=== PATIENT | female | born 1990 | race American Indian/Alaskan Native ===

== ENCOUNTER 2016-05-15 03:22 | Emergency (ER) | payer SELFPAY ==
[2016-05-15 03:42] VITALS: BP 135/78
[2016-05-15 04:12] LABS: Basophils % (Auto) 0.7 % (0.0-1.8); Eosinophils % (Auto) 3.4 % (0.0-4.3); Hemoglobin 11.6 gm/dl (10.1-14.3); Mean Corpuscular HGB Conc 32 % (30-34); Mean Corpuscular Hemoglobin 27 pg (28-32); Mean Corpuscular Volume 84 fl (79-97); Platelet Count 382 K/mm3 (140-440); Red Blood Count 4.27 M/mm3 (3.65-5.03); Red Cell Distribution Width 15.1 % (13.2-15.2)
[2016-05-15 04:35] LABS: Alanine Aminotransferase 19 units/L (7-56); Albumin 4.5 g/dL (3.9-5); Albumin/Globulin Ratio 1.7 %; Alkaline Phosphatase 56 units/L (35-129); Anion Gap 20 mmol/L; BUN/Creatinine Ratio 13.75; Bilirubin,Total 0.4 mg/dL (0.1-1.2); Blood Urea Nitrogen 11 mg/dL (7-17); Calcium 8.9 mg/dL (8.4-10.2); Carbon Dioxide 22 mmol/L (22-30); Chloride 100.4 mmol/L (98-107); Glucose 117 mg/dL (65-100); Potassium 3.8 mmol/L (3.6-5.0); Sodium 139 mmol/L (137-145); Total Protein 7.2 g/dL (6.3-8.2)
[2016-05-15 06:05] LABS: Bacteria,Urine 1+ /HPF (Negative); Bilirubin,Urine NEG (Negative); Blood,Urine NEG (Negative); Ketones,Urine 20 mg/dL (Negative); Leukocyte Esterase,Urine MOD (Negative); Mucus,Urine 3+ /HPF; Nitrite,Urine NEG (Negative); Urobilinogen,Urine < 2.0 mg/dL (<2.0)
--- NOTE | 2016-05-16 18:47 | ED Elopement Review ---
ED Pt Elopement review - Results review Lab results: Laboratory Tests 05/15/16 05/15/16 05/15/16 04:03 04:03 Unknown WBC 7.0 RBC 4.27 Hgb 11.6 Hct 36.0 MCV 84 MCH 27 L MCHC 32 RDW 15.1 Plt Count 382 Lymph % (Auto) 40.6 H Ware % (Auto) 10.9 H Eos % (Auto) 3.4 Baso % (Auto) 0.7 Lymph # 2.8 Ware # 0.8 Eos # 0.2 Baso # 0.1 Seg Neutrophils % 44.4 Seg Neutrophils # 3.1 Sodium 139 Potassium 3.8 Chloride 100.4 Carbon Dioxide 22 Anion Gap 20 BUN 11 Creatinine 0.8 Estimated GFR > 60 BUN/Creatinine Ratio 13.75 Glucose 117 H Calcium 8.9 Total Bilirubin 0.4 AST 30 ALT 19 Alkaline Phosphatase 56 Total Protein 7.2 Albumin 4.5 Albumin/Globulin Ratio 1.7 Urine Color Yellow Urine Turbidity Cloudy Urine pH 5.0 Ur Specific [place] 1.036 H Urine Protein 30 mg/dl Urine Glucose (UA) Neg Urine Ketones 20 Urine Blood Neg Urine Nitrite Neg Ur Reducing Substances Not Reportable Urine Bilirubin Neg Urine Ictotest Not Reportable Urine Urobilinogen < 2.0 Ur Leukocyte Esterase Mod Urine WBC (Auto) 10.0 H Urine RBC (Auto) 3.0 U Epithel Cells (Auto) 44.0 H Urine Bacteria (Auto) 1+ Urine Mucus 3+ Urine HCG, Qual Positive A - Call Back decision Pt Call Back Decision: Call pt to return to ED [facility] ( with abd pain)
== END 2016-05-15 11:02 | disposition left against medical advice (07) ==
LOC: ED 03:22
DX: R10.30 Lower abdominal pain, unspecified (principal); Z53.21 Procedure and treatment not carried out due to patient leaving prior to being seen by health care provider
CPT/HCPCS: 36415; 80053; 81001; 81025; 85025

== ENCOUNTER 2016-07-04 10:05 | Emergency (ER) | payer SELFPAY ==
[2016-07-04 11:21] LABS: Basophils % (Auto) 0.7 % (0.0-1.8); Eosinophils % (Auto) 3.2 % (0.0-4.3); Hemoglobin 11.5 gm/dl (10.1-14.3); Mean Corpuscular HGB Conc 33 % (30-34); Mean Corpuscular Hemoglobin 28 pg (28-32); Mean Corpuscular Volume 84 fl (79-97); Platelet Count 341 K/mm3 (140-440); Red Blood Count 4.17 M/mm3 (3.65-5.03); Red Cell Distribution Width 14.6 % (13.2-15.2); White Blood Count 5.4 K/mm3 (4.5-11.0)
[2016-07-04 12:31] LABS: Bilirubin,Urine NEG (Negative); Blood,Urine MOD (Negative); Ketones,Urine NEG (Negative); Leukocyte Esterase,Urine NEG (Negative); Mucus,Urine FEW /HPF; Nitrite,Urine NEG (Negative); Protein,Urine <15 mg/dL mg/dL (Negative); Urobilinogen,Urine < 2.0 mg/dL (<2.0)
--- NOTE | 2016-07-04 13:49 | Ultrasound Report ---
OB sonogram: History: Vaginal bleeding, pain. Findings: Uterus elias 15.7 x 7.5 8.2 cm. Single intrauterine gestation is noted. Biparietal diameter of the fetus is 1.8 cm corresponding to 12 weeks and 5 days of gestation. Femur length of the fetus is 0.82 cm corresponding to 12 weeks and 3 days gestation. heart rate 160 per minute. There is moderate subchorionic bleed noted measuring 1.9 x 1.3 x 3.4 cm. Right ovary 3.4 x 3.6 x 3.4 cm. Cyst in the right ovary measures 2 cm and a complex cyst in the right ovary measures 2.9 cm. Left ovary measures 2.5 x 1.4 x 1.8 cm. No mass. Impression: Single viable date of gestation. Subchorionic bleed. Complex and simple cyst right ovary.
[2016-07-04 18:24] VITALS: BP 117/47
--- NOTE | 2016-07-04 18:25 | Emergency Department Report ---
ED HPI - General Chief complaint: Urogenital-Female Stated complaint: 3 MO PREG/ HEAVY BLEEDING Time Seen by Provider: 07/04/16 18:00 Source: patient Mode of arrival: Ambulatory Limitations: No Limitations - History of Present Illness Complaint: vaginal bleeding Onset/Timin -: Gradual, days(s) Location: pelvis Radiation: none Severity scale (0 -10): 1 Quality: cramping Consistency: intermittent Improves with: none Worsens with: none Associated symptoms: vaginal bleeding. denies: nausea/vomiting, vaginal discharge, abdominal pain, headache, vision changes, malaise, dysparuenia, rash , shortness of breath, syncope, weakness Vaginal bleeding: light :: Yes Number of weeks : 12 OB History - Current : no complications OB History - Previous Pregnancies: no complications Last menstrual period: 03/28/16 Pre-anup care: none - Related Data Home Medications Medication Instructions Recorded Confirmed Last Taken ALBUTEROL NEB's [Proventil 0.083% 2 puff INHALATION Q4-6H PRN 03/12/14 03/12/14 03/11/14 14:00 NEBS] 1 Pnv95/Ferrous Fumarate/FA 1 tab PO DAILY 03/12/14 03/12/14 03/11/14 09:00 [ Vitamins] 1 Previous Rx's Medication Instructions Recorded Last Taken Type Prednisone 40 mg PO DAILY #5 day 01/25/14 Unknown Rx Acetaminophen with Codeine 60 ml PO TID #90 ml 03/21/14 Unknown Rx [Acetaminophen-Codeine ORAL LIQ] Azithromycin [Zithromax Z-REN] 250 mg PO DAILY #6 tablet 03/21/14 Unknown Rx Fluticasone [Flonase] 1 spray NS QDAY #1 bottle 03/21/14 Unknown Rx Loratadine [Claritin RAPDIS] 10 mg PO QDAY #10 tab.rapdis 03/21/14 Unknown Rx HYDROcodone/APAP 7.5-325 [[place] 1 each PO Q8HR PRN #10 tablet 02/12/16 Unknown Rx 7.5-325 mg TAB] Ondansetron [Zofran TAB] 4 mg PO Q8HR PRN #14 tablet 02/12/16 Unknown Rx Allergies Allergy/AdvReac Type Severity Reaction Status Date / Time No Known Allergies Allergy Verified 03/12/14 17:20 ED Review of Systems ROS: Stated complaint: 3 MO PREG/ HEAVY BLEEDING Other details as noted in HPI Comment: All other systems reviewed and negative ED Past Medical Hx - Past Medical History Previous Medical History?: Yes Hx Hypertension: (( induced)) Hx Diabetes: No Hx Deep Vein Thrombosis: No Hx Renal Disease: No Hx Sickle Cell Disease: No Hx Seizures: No Hx Asthma: Yes Hx HIV: No - Surgical History Past Surgical History?: Yes Additional Surgical History: - Social History Smoking Status: Never Smoker Substance Use Type: None - Medications Home Medications: Home Medications Medication Instructions Recorded Confirmed Last Taken Type Prednisone 40 mg PO DAILY #5 day 01/25/14 03/12/14 Unknown Rx ALBUTEROL NEB's [Proventil 0.083% 2 puff INHALATION Q4-6H PRN 03/12/14 03/12/14 03/11/14 14:00 History NEBS] 1 Pnv95/Ferrous Fumarate/FA 1 tab PO DAILY 03/12/14 03/12/14 03/11/14 09:00 History [ Vitamins] 1 Acetaminophen with Codeine 60 ml PO TID #90 ml 03/21/14 Unknown Rx [Acetaminophen-Codeine ORAL LIQ] Azithromycin [Zithromax Z-REN] 250 mg PO DAILY #6 tablet 03/21/14 Unknown Rx Fluticasone [Flonase] 1 spray NS QDAY #1 bottle 03/21/14 Unknown Rx Loratadine [Claritin RAPDIS] 10 mg PO QDAY #10 tab.rapdis 03/21/14 Unknown Rx HYDROcodone/APAP 7.5-325 [[place] 1 each PO Q8HR PRN #10 tablet 02/12/16 Unknown Rx 7.5-325 mg TAB] Ondansetron [Zofran TAB] 4 mg PO Q8HR PRN #14 tablet 02/12/16 Unknown Rx ED Physical Exam - General Limitations: No Limitations General appearance: alert, in no apparent distress - Head Head exam: Present: atraumatic, normocephalic - Eye Eye exam: Present: normal appearance - ENT ENT exam: Present: mucous membranes moist - Neck Neck exam: Present: normal inspection - Respiratory Respiratory exam: Present: normal lung sounds bilaterally. Absent: respiratory distress - Cardiovascular Cardiovascular Exam: Present: regular rate, normal rhythm. Absent: systolic murmur, diastolic murmur, rubs, gallop - GI/Abdominal GI/Abdominal exam: Present: soft, normal bowel sounds. Absent: distended, tenderness, guarding, rebound, rigid - Extremities Exam Extremities exam: Present: normal inspection - Back Exam Back exam: Present: normal inspection - Neurological Exam Neurological exam: Present: alert, oriented X3 - Psychiatric Psychiatric exam: Present: normal affect, normal mood - Skin Skin exam: Present: warm, dry, intact, normal color. Absent: rash ED Course Vital Signs 07/04/16 10:53 Temperature 98.7 F Pulse Rate 68 Respiratory 18 Rate Blood Pressure 140/65 O2 Sat by Pulse 100 Oximetry ED Medical Decision Making - Lab Data Result diagrams: 07/04/16 11:05 - Radiology Data Radiology results: report reviewed, image reviewed - Medical Decision Making Patient doing well, confirmed 12 weeks IUP, moderate subcorionic bleed as describe in the report, no bleeding since noon today , labs negative , she is waiting on medicaid to kick in to do care. Critical care attestation.: If time is entered above; I have spent that time in minutes in the direct care of this critically ill patient, excluding procedure time. ED Disposition Disposition: DISCHARGED TO HOME OR SELFCARE Is pt being admited?: No Does the pt Need Aspirin: No Condition: Good Instructions: (ED), Threatened Miscarriage (ED) Referrals: PRIMARY CAREMD [Primary Care Provider] - 3-5 Days AMERICO IBARRA MD [Staff Physician] - 3-5 Days Time of Disposition: 18:25
== END 2016-07-04 18:25 | disposition home or self-care (01) ==
LOC: ED 10:05
DX: O20.9 Hemorrhage in early pregnancy, unspecified (principal); J45.909 Unspecified asthma, uncomplicated; Z3A.12 12 weeks gestation of pregnancy
CPT/HCPCS: 36415; 76801; 81001; 84702; 85025; 86850; 86900; 86901

== ENCOUNTER 2017-01-12 09:07 | Inpatient (IN) | payer MEDICAID, OTHER ==
--- NOTE | 2017-01-12 09:03 | History and Physical Report ---
<ALBERTA GREENE M - Last Filed: 01/12/17 09:01> History of Present Illness Date of examination: 01/12/17 Date of admission: 01/12/17 Chief complaint: schedueld c/sec Past History - Obstetrical History : 3 Medications and Allergies Allergies Allergy/AdvReac Type Severity Reaction Status Date / Time No Known Allergies Allergy Verified 03/12/14 17:20 Home Medications Medication Instructions Recorded Confirmed Last Taken Type Prednisone 40 mg PO DAILY #5 day 01/25/14 03/12/14 Unknown Rx ALBUTEROL NEB's [Proventil 0.083% 2 puff INHALATION Q4-6H PRN 03/12/14 03/12/14 03/11/14 14:00 History NEBS] 1 Pnv95/Ferrous Fumarate/FA 1 tab PO DAILY 03/12/14 03/12/14 03/11/14 09:00 History [ Vitamins] 1 Acetaminophen with Codeine 60 ml PO TID #90 ml 03/21/14 Unknown Rx [Acetaminophen-Codeine ORAL LIQ] Azithromycin [Zithromax Z-REN] 250 mg PO DAILY #6 tablet 03/21/14 Unknown Rx Fluticasone [Flonase] 1 spray NS QDAY #1 bottle 03/21/14 Unknown Rx Loratadine [Claritin RAPDIS] 10 mg PO QDAY #10 tab.rapdis 03/21/14 Unknown Rx HYDROcodone/APAP 7.5-325 [[place] 1 each PO Q8HR PRN #10 tablet 02/12/16 Unknown Rx 7.5-325 mg TAB] Ondansetron [Zofran TAB] 4 mg PO Q8HR PRN #14 tablet 02/12/16 Unknown Rx Results All other labs normal. Assessment and Plan A/P HD#1 for schedueld c/sec admission orders IVF labs anesthesia consult consents signed proceeed for repeat c//sec <MALGORZATA JASON - Last Filed: 01/12/17 11:30> History of Present Illness Date of admission: 01/12/17 09:07 History of present illness: This is a 26 yo at 39+1 weeks her efor scheduled repeat c/sec. She is a patient of [facility] and records reviewed OB problem list previous c/sec asthma morbid obesity rubella non immune anemia GDM A2 on glyburide GBS + Past History Past Medical History: asthma Past Surgical History: section Family/Genetic History: hypertension, other (hypercholesterolemia ) Social history: single. denies: smoking, alcohol abuse, prescription drug abuse - Obstetrical History Expected Date of Delivery: 01/18/17 Actual Gestation: 39 Week(s) 1 Day(s) : 4 Para: 2 Medications and Allergies Active Meds: Active Medications Citric Acid/Sodium Citrate (Bicitra) 30 ml PO ONCE NR Stop: 01/12/17 19:00 Last Admin: 01/12/17 10:57 Dose: 30 ml Famotidine (Pepcid) 20 mg IV ONCE NR Stop: 01/12/17 19:00 Last Admin: 01/12/17 10:57 Dose: 20 mg Cefazolin Sodium (Ancef/Sterile Water 2 Gm/20 Ml) 2 gm in 20 mls @ 80 mls/hr IV PREOP NR PRN Reason: Protocol Stop: 01/12/17 19:00 Lactated Ringer's (Lactated Ringers) 1,000 mls @ 2,250 mls/hr IV PREOP SYLVIA Stop: 01/13/17 09:27 Last Admin: 01/12/17 10:57 Dose: 2,250 mls/hr Oxytocin/Sodium Chloride (Pitocin/Ns 20 Unit/1000ml Drip) 20 units in 1,000 mls @ 0 mls/hr IV TITR SYLVIA PRN Reason: As Directed Metoclopramide HCl (Reglan) 10 mg IV ONCE NR Stop: 01/12/17 19:00 Last Admin: 01/12/17 10:57 Dose: 10 mg - Vital Signs Vital signs: Vital Signs Temp Resp 98.1 F 18 01/12/17 09:41 01/12/17 09:41 Temp Pulse Resp BP Pulse Ox 98.1 F 18 01/12/17 09:41 01/12/17 09:41 Results Result Diagrams: 01/12/17 10:00 Abnormal lab results 01/12/17 Range/Units 10:00 [place] % (Auto) 8.7 H (0.0-7.3) % All other labs normal.
[~2017-01-12 09:07] MED LIST: ANCEF/STERILE WATER 2 GM/20 ML 2 GM/20 ML SYRINGE IV NR; BICITRA PO NR; PEPCID IV NR; REGLAN IV NR
[2017-01-12] MEDS: LACTATED RINGERS 1,000 ML IV SCH ×2 (10:20→10:57)
[2017-01-12 10:29] LABS: Basophils % (Auto) 0.5 % (0.0-1.8); Eosinophils % (Auto) 1.3 % (0.0-4.3); Hematocrit 31.9 % (30.3-42.9); Hemoglobin 10.6 gm/dl (10.1-14.3); Mean Corpuscular HGB Conc 33 % (30-34); Mean Corpuscular Hemoglobin 29 pg (28-32); Mean Corpuscular Volume 87 fl (79-97); Platelet Count 247 K/mm3 (140-440); Red Blood Count 3.67 M/mm3 (3.65-5.03); Red Cell Distribution Width 14.7 % (13.2-15.2); White Blood Count 6.9 K/mm3 (4.5-11.0)
[2017-01-12] MEDS ORDERED: PITOCin/NS 20 UNIT/1000ML DRIP 20 UNITS/1,000 ML BAG IV SCH ×2 (11:00→14:00)
[2017-01-12] MEDS ORDERED: PHENERGAN PR PRN (11:30)
[2017-01-12] MEDS ORDERED: NARCAN 0.4 MG/1 ML IV PRN ×2 (11:30→12:59)
[2017-01-12] MEDS ORDERED: DILAUDID IV PRN ×2 (11:30→11:44)
[2017-01-12] MEDS ORDERED: ZOFRAN IV PRN (11:30)
--- NOTE | 2017-01-12 11:30 | Anesthesia Consultation ---
Anesthesia Consult and Med Hx Date of service: 01/12/17 - Airway Anesthetic Teeth Evaluation: Good ROM Head & Neck: Adequate Mental/Hyoid Distance: Adequate Mallampati Class: Class III Intubation Access Assessment: Possibly Difficult - Pre-Operative Health Status ASA Pre-Surgery Classification: ASA3 Proposed Anesthetic Plan: Epidural, Spinal - Pulmonary Hx Asthma: Yes (last used inhaler 1 week ago) COPD: No Hx Pneumonia: No - Cardiovascular System Hx Hypertension: No - Central Nervous System Hx Seizures: No Hx Psychiatric Problems: No - Endocrine Hx Renal Disease: No Hx End Stage Renal Disease: No Hx Non-Insulin Dependent Diabetes: Yes Hx Hypothyroidism: No Hx Hyperthyroidism: No - Hematic Hx Anemia: Yes (takes iron-non compliant) Hx Sickle Cell Disease: No - Other Systems Hx Alcohol Use: No Hx Obesity: Yes (morbid obesity BMI 44.6)
--- NOTE | 2017-01-12 11:30 | Anesthesia Day of Surgery ---
Anesthesia Day of Surgery - Day of Surgery Patient Examined: Yes Patient H&P Reviewed: Yes Patient is NPO: Yes
[2017-01-12] MEDS ORDERED: TORADOL IV PRN ×2 (11:31→12:59)
[2017-01-12] MEDS ORDERED: NACL 0.9% IR ONE (11:35)
[2017-01-12] MEDS ORDERED: WATER FOR IRRIG STERILE IR ONE (11:35)
[2017-01-12] MEDS ORDERED: MORPHINE ONE (11:37)
[2017-01-12] MEDS ORDERED: SODIUM CHLORIDE FLUSH SYRINGE 10 ML IV NR (12:00)
[2017-01-12] MEDS ORDERED: DILAUDID ONE (12:43)
[2017-01-12] MEDS ORDERED: TUCKS PAD TP PRN (12:59)
[2017-01-12] MEDS ORDERED: NORCO 5/325 PO PRN (12:59)
[2017-01-12] MEDS ORDERED: MORPHINE IV PRN ×2 (12:59)
[2017-01-12] MEDS ORDERED: TYLENOL PR PRN (12:59)
[2017-01-12] MEDS ORDERED: LANSINOH TP PRN (12:59)
[2017-01-12] MEDS ORDERED: PERCOCET 5/325 PO PRN ×2 (12:59→17:37)
[2017-01-12] MEDS ORDERED: SODIUM CHLORIDE FLUSH SYRINGE 10 ML IV SCH (13:00)
[2017-01-12] MEDS ORDERED: NEO SYNEPHRINE/NS Syringe(OR USE) IV ONE (13:00)
--- NOTE | 2017-01-12 13:03 | Procedure Note ---
OB Delivery Note - Delivery Date of Delivery: 01/12/17 Surgeon: ALBERTA GREENE Estimated blood loss: other (600) - Section Preop diagnosis: repeat Postop diagnosis: same section procedure: section Disposition: PACU Complications: none Narrative: see op note
--- NOTE | 2017-01-12 13:09 | Operative Report ---
Operative Report Operative Report: PREOPERATIVE DIAGNOSES: 1. Intrauterine at 39+1 weeks. 2. History of previous section x1. The patient desires a repeat section. 3. GDM 4. Morbid obesity POSTOPERATIVE DIAGNOSES: 1. Intrauterine at 39+1 weeks. 2. History of previous section x1. The patient desires a repeat section. 3. GDM 4. Morbid obesity PROCEDURE PERFORMED: Repeat section and bilateral tubal ligation. ANESTHESIA: Spinal. ESTIMATED BLOOD LOSS: 600 mL. COMPLICATIONS: None. FINDINGS: Female infant in cephalic presentation , Apgars were 8 at 1 minute and 9 at 5 minutes, 9 at 10 minutes, and weight 7 pounds 1 ounces. Normal uterus , tubes, and ovaries were noted. INDICATIONS: The patient is a 26-year-old 4, para 1 female, who presented to repeat section at term. The patient has a history of 1 previous sections and she desires a repeat section. The procedure was described to the patient in detail including possible risks of bleeding, infection, injury to surrounding organs, and the possible need for further surgery and informed consent was obtained. PROCEDURE NOTE: The patient was taken to the operating room where spinal anesthesia was administered without difficulty. The patient was prepped and draped in the usual sterile fashion in the dorsal supine position with a leftward tilt. A Pfannenstiel skin incision was made with the scalpel and carried through to the underlying layer of fascia using the Bovie. The fascia was incised in the midline and extended laterally using Domingo scissors. Shay clamps were used to elevate the superior aspect of the fascial incision, which was elevated, and the underlying rectus muscles were dissected off bluntly and using Domingo scissors. Attention was then turned to the inferior aspect of the fascial incision, which in similar fashion was grasped with Shay clamps, elevated, and the underlying rectus muscles were dissected off bluntly and using the Bovie. The rectus muscles were dissected in the midline. The peritoneum was identified and entered using Metzenbaum scissors; this incision was extended superiorly and inferiorly with good visualization of the bladder. The bladder blade was inserted. The vesicouterine peritoneum was identified and entered sharply using Metzenbaum scissors. This incision was extended laterally and the bladder flap was created digitally. The bladder blade was reinserted. The lower uterine segment was incised in a transverse fashion using the scalpel and extended using bandage scissors as well as manual traction. Clear fluid was noted. The infant was delivered with one nuchal cord reduced prior to delivering . The nose and mouth were bulb suctioned. The cord was clamped and cut. The was subsequently handed to the awaiting nursery nurse. The placenta was delivered spontaneously intact with a three-vessel cord noted. The uterus was exteriorized and cleared of all clots and debris. The uterine incision was repaired in 2 layers using 0 vicryl sutures. Hemostasis was visualized. . The uterus was returned to the abdomen. Thisel was used for hemostasis . The uterine incision was reexamined and it was noted to be hemostatic. The pelvis was copiously irrigated. The rectus muscles were evaluated. The fascia was closed with 0 PDS suture, the subcutaneous layer was closed with 3-0 plain gut, and the skin was closed with Richard needle . Sponge, lap, and instrument counts were correct x2. The patient was stable at the completion of the procedure and was subsequently transferred to the recovery room in stable condition.
[2017-01-12] MEDS ORDERED: NACL 0.9% 1000 ML 1,000 ML ONE (13:20)
--- NOTE | 2017-01-12 15:54 | Post Anesthesia Evaluation ---
- Post Anesthesia Evaluation Patient Participated: Yes Airway Patent: Yes Stable Respiratory Function: Yes Temp > 96.8F: Yes Pain Manageable: Yes Adequeate Hydration: Yes Anesthesia Complications: No Block Receding Appropriately: Yes
[2017-01-12] MEDS: BENADRYL IV PRN ×3 (16:24→22:45)
[2017-01-12] MEDS ORDERED: D5LR 1,000 ML IV SCH (18:00)
[2017-01-13 02:07] LABS: Hematocrit 29.5 % (30.3-42.9); Hemoglobin 10.4 gm/dl (10.1-14.3)
[2017-01-13] MEDS ORDERED: BOOSTRIX IM ONE (06:01)
--- NOTE | 2017-01-13 08:45 | Progress Note ---
Assessment and Plan - Patient Problems (1) Previous delivery, delivered Current Visit: Yes Status: Acute Plan to address problem: patient doing well routine postoperative care Subjective - Subjective Date of service: 01/13/17 Interval history: Patient reports being able to void. Pain is controlled. Tolerating regular diet. Patient reports: appetite normal, voiding normally, pain well controlled : doing well Objective - Vital Signs Latest vital signs: Vital Signs Temp Pulse Resp BP BP Pulse Ox 01/13/17 04:20 98.6 F 66 16 101/69 01/13/17 00:10 98.6 F 69 16 121/68 01/12/17 20:30 98.6 F 66 16 131/76 01/12/17 16:44 98.5 F 84 20 150/50 01/12/17 14:30 98.6 F 80 20 99/50 95 01/12/17 13:18 98.5 F 93 H 18 109/47 97 01/12/17 09:41 98.1 F 18 Intake and Output 01/12/17 01/13/17 01/13/17 22:59 06:59 14:59 Intake Total 1050 500 Output Total 1000 500 Balance 50 0 Intake: Oral 750 200 Intake, Free Water 300 300 Output: Urine 1000 500 Indwelling Catheter 600 Void 500 Other: Total, Intake Amount 250 200 Total, Output Amount 600 500 Voiding Method Indwelling Catheter - Exam Abdomen: Present: normal appearance, soft Uterus: Present: normal, firm Incision: Present: dressed - Labs Labs: Abnormal lab results 01/12/17 01/13/17 Range/Units 10:00 01:14 Hct 29.5 L (30.3-42.9) % [place] % (Auto) 8.7 H (0.0-7.3) %
--- NOTE | 2017-01-13 10:05 | Progress Note ---
Subjective Date of service: 01/13/17 Interval history: 1st POD after Patient is in the bed, comfortable. Pain is well controlled with pain meds. Ambulated well. No residual neurological deficit. Pruritus is receding. No anesthesia complications Objective - Constitutional Vitals: Vital Signs - 12hr 01/13/17 01/13/17 01/13/17 00:10 04:20 08:19 Temperature 98.6 F 98.6 F 98.8 F Pulse Rate 69 66 94 H Respiratory 16 16 18 Rate Blood Pressure 121/68 101/69 109/54 [Right] O2 Sat by Pulse 95 Oximetry - Labs CBC & Chem 7: 01/13/17 01:14 Labs: Abnormal lab results 01/12/17 01/13/17 Range/Units 10:00 01:14 Hct 29.5 L (30.3-42.9) % [place] % (Auto) 8.7 H (0.0-7.3) %
[2017-01-13] MEDS: PRENATAL VITAMIN PO SCH (10:12)
[2017-01-13] MEDS: MOTRIN PO PRN ×2 (10:12→17:55)
[2017-01-13] MEDS: FEOSOL PO SCH (10:12)
[2017-01-13] MEDS: BENADRYL IV PRN (10:18)
[2017-01-13] MEDS ORDERED: M-M-R II VACCINE SUB-Q ONE (13:01)
[2017-01-14] MEDS: MOTRIN PO PRN ×3 (00:08→12:41)
[2017-01-14 09:03] VITALS: BP 108/65
--- NOTE | 2017-01-14 09:45 | Progress Note ---
Assessment and Plan A: POD#2 s/p repeat section, asymptomatic anemia P: Routine care. Discharge today with follow up in 2 weeks for incision check. Subjective - Subjective Date of service: 01/14/17 Principal diagnosis: s/p repeat section Interval history: No overnight events. Pt desires to go home. Patient reports: appetite normal, voiding normally, flatus, ambulating normally [place]: doing well Objective - Vital Signs Latest vital signs: Vital Signs Temp Pulse Resp BP BP Pulse Ox 01/14/17 08:39 97.5 F L 82 18 108/65 95 01/14/17 00:00 98.1 F 74 18 116/62 01/13/17 16:30 97.8 F 86 18 114/56 114/56 95 Intake and Output 01/13/17 01/14/17 01/14/17 22:59 06:59 14:59 Intake Total 600 Output Total 850 Balance -250 Intake: Oral 600 Output: Urine 850 Void 850 Other: Total, Intake Amount 240 Total, Output Amount 400 # Voids Void 1 - Exam Breasts: Present: deferred Cardiovascular: Present: Regular rate Lungs: Present: Clear to auscultation Abdomen: Present: soft (obese), normal bowel sounds Uterus: Present: fundal height at umbilicus Extremities: Present: edema (trace ) Incision: Present: intact
--- NOTE | 2017-01-14 09:49 | Discharge Summary ---
Providers - Providers Date of Admission: 01/12/17 09:07 Date of discharge: 01/14/17 Attending physician: ALBERTA GAR MD Primary care physician: ALBERTA GAR MD Hospitalization Reason for admission: section Delivery: Procedure: section, repeat low transverse Procedure details: Please see operative note. Episiotomy: none Incision: intact Other procedures: none complications: none Discharge diagnosis: IUP at term delivered baby: female Hospital course: The patient was admitted for repeat section which she tolerated well. Her postoperative course is uncomplicated and she met discharge criteria on postoperative day #2. She'll follow-up in the office with Dr. Gar in 2 weeks for an incision check. Condition at discharge: Stable Disposition: AR- TO HOME OR SELFCARE - Discharge Diagnoses (1) Morbid obesity Status: Acute (2) Anemia Status: Acute Qualifiers: Anemia type: unspecified type Iron deficiency anemia type: I Vitamin B12 deficiency anemia type: V Folate deficiency anemia type: F Bone marrow failure anemia type: B Hemolytic anemia type: H Other causes of anemia: O Chronic kidney disease stage: C Qualified Code(s): D64.9 - Anemia, unspecified (3) Previous delivery, delivered Status: Acute Plan - Discharge Medications Prescriptions: Ibuprofen [Motrin] 800 mg PO Q8HR PRN #30 tablet PRN Reason: Pain oxyCODONE /ACETAMINOPHEN [Percocet 5/325] 1 tab PO Q6HR PRN #30 tablet PRN Reason: Pain - Provider Discharge Summary Activity: routine, no sex for 6 weeks, no heavy lifting 4 weeks, no strenuous exercise Diet: routine Instructions: routine Additional instructions: [] Smoking cessation referral if applicable(refer to patient education folder for contact #) [] Refer to [facility]'s [facility] Booklet Call your doctor immediately for: * Fever > 100.5 * Heavy vaginal bleeding ( >1 pad per hour) * Severe persistent headache * Shortness of breath * Reddened, hot, painful area to leg or breast * Drainage or odor from incision. * Keep incision clean and dry at all times and follow doctor's instructions regarding bathing/showering - Follow up plan Follow up: ALBERTA GAR MD [Primary Care Provider] - 01/26/17 (incision check- please call to schedule appt ) Forms: [facility] Discharge Summary, Discharge Signature Page
[2017-01-14] MEDS: PRENATAL VITAMIN PO SCH (10:32)
[2017-01-14] MEDS: FEOSOL PO SCH (10:32)
== END 2017-01-14 17:20 | disposition home or self-care (01) | DRG 765 ==
LOC: APU 09:07 → OB 16:11
PROVIDERS: ADMIT Obstetrics & Gynecology; ATTEND Obstetrics & Gynecology
PROC: 10D00Z1 Extraction of Products of Conception, Low, Open Approach (ICD-10-PCS; principal; 2017-01-12)
PROC: 3E0234Z Introduction of Serum, Toxoid and Vaccine into Muscle, Percutaneous Approach (ICD-10-PCS; 2017-01-12)
DX: O34.211 Maternal care for low transverse scar from previous cesarean delivery (principal); Z68.41 Body mass index [BMI] 40.0-44.9, adult; O99.214 Obesity complicating childbirth; Z82.49 Family history of ischemic heart disease and other diseases of the circulatory system; Z83.42 Family history of familial hypercholesterolemia; Z3A.39 39 weeks gestation of pregnancy; Z37.0 Single live birth; O24.419 Gestational diabetes mellitus in pregnancy, unspecified control; E66.01 Morbid (severe) obesity due to excess calories; O99.52 Diseases of the respiratory system complicating childbirth; J45.909 Unspecified asthma, uncomplicated; O69.81X0 Labor and delivery complicated by cord around neck, without compression, not applicable or unspecified; Z23 Encounter for immunization; D64.9 Anemia, unspecified; O99.03 Anemia complicating the puerperium
CPT/HCPCS: 36415; 85014; 85018; 85025; 86592; 86850; 86900; 86901; 90471; 90715; C9250; J0690; J1170; J1200; J1885; J2270; J2370; J2590; J2765; J7030; J7120; J7121

== ENCOUNTER 2019-07-20 02:04 | Emergency (ER) | payer MEDICAID ==
[2019-07-20 02:13] VITALS: BP 126/80
[2019-07-20 03:57] LABS: Basophils % (Auto) 0.4 % (0.0-1.8); Eosinophils # (Auto) 0.2 K/mm3 (0.0-0.4); Eosinophils % (Auto) 3.1 % (0.0-4.3); Hematocrit 30.6 % (30.3-42.9); Hemoglobin 10.8 gm/dl (10.1-14.3); Lymphocytes # (Auto) 2.3 K/mm3 (1.2-5.4); Lymphocytes % (Auto) 31.5 % (13.4-35.0); Mean Corpuscular HGB Conc 35 % (30-34); Mean Corpuscular Volume 85 fl (79-97); Monocytes # (Auto) 0.6 K/mm3 (0.0-0.8); Monocytes % (Auto) 8.6 % (0.0-7.3); Platelet Count 323 K/mm3 (140-440); Red Blood Count 3.59 M/mm3 (3.65-5.03); Red Cell Distribution Width 15.3 % (13.2-15.2)
--- NOTE | 2019-07-20 03:57 | Ultrasound Report ---
ULTRASOUND ABDOMEN, LIMITED (RIGHT UPPER QUADRANT) INDICATION: ruq pain, history cholelithiasis, 20 week COMPARISON: None available. LIMITATIONS: None FINDINGS: Pancreas: Visualized portion shows no significant abnormality. Liver: Patchy fatty infiltration is seen. Liver is enlarged and has a length of 20.6 cm. No obvious f ocal masses are seen. Gallbladder: Multiple gallstones are seen. No gallbladder wall thickening is noted. Bile ducts: Normal. Common Bile Duct measures 3 mm. Right Kidney: Visualized portions show no abnormality. Free fluid: None. Additional Findings: None. IMPRESSION: Cholelithiasis without acute change seen Signer Name: Chavo Tiwari MD Signed: 07/20/2019 3:53 AM Workstation Name: [id number]
--- NOTE | 2019-07-20 04:00 | Ultrasound Report ---
Limited obstetrical ultrasound INDICATION: Right upper quadrant pain and cramping, Single intrauterine is noted. Fetus is in a cephalic position at this time. Placenta is pos terior and free of the internal cervical os. cardiac activity was documented with heart r ate of 154 bpm. Anatomical survey was not performed but no obvious abnormalities are seen. Clair mated gestational age is 20 weeks 6 days which corresponds with clinical dating. I do not see a signi ficant discrepancy between head and body measurements. Estimated weight is 369 g +/- 55 g in th e 42nd percentile. Amniotic fluid volume appears qualitatively within normal limits. Cervical length is 4.2 cm. IMPRESSION: 20 week 6 day without obvious abnormality Signer Name: Chavo Tiwari MD Signed: 07/20/2019 3:55 AM Workstation Name: [id number]
[2019-07-20 04:17] LABS: Alanine Aminotransferase 7 units/L (7-56); Albumin 3.9 g/dL (3.9-5); BUN/Creatinine Ratio 8; Blood Urea Nitrogen 4 mg/dL (7-17); Calcium 9.2 mg/dL (8.4-10.2); Hemolysis Index 3
[2019-07-20 04:19] LABS: Bilirubin,Direct < 0.2 mg/dL (0-0.2)
--- NOTE | 2019-07-20 04:22 | Emergency Department Report ---
ED Female HPI - General Chief complaint: Abdominal Pain Stated complaint: 20 WEEKS CRAMPING ABD PAIN Time Seen by Provider: 07/20/19 02:42 Source: patient Mode of arrival: Ambulatory Limitations: No Limitations - History of Present Illness Initial comments: 28-year-old morbidly obese -Tristanian female 20 weeks presents emergency department after seeing her doctor today for a yeast infection. Patient states that she is upset because the doctor was not doing any ultrasounds at the time and she wanted to see the baby and noted it was doing okay. That was 1 of the primary concerns for her visit today she reports having some upper abdominal discomfort as well no hemoptysis no nausea no hematemesis no excessive acid reflux. Reports no shortness of breath no fever chills sweats. - Related Data Previous Rx's Medication Instructions Recorded Last Taken Type Ibuprofen [Motrin] 800 mg PO Q8HR PRN #30 tablet 01/14/17 Unknown Rx oxyCODONE /ACETAMINOPHEN [Percocet 1 tab PO Q6HR PRN #30 tablet 01/14/17 Unknown Rx 5/325] Allergies Allergy/AdvReac Type Severity Reaction Status Date / Time No Known Allergies Allergy Verified 03/12/14 17:20 ED Review of Systems ROS: Stated complaint: 20 WEEKS CRAMPING ABD PAIN Other details as noted in HPI Comment: All other systems reviewed and negative ED Past Medical Hx - Past Medical History Previous Medical History?: Yes Hx Hypertension: No Hx Congestive Heart Failure: No Hx Diabetes: No Hx Deep Vein Thrombosis: No Hx Renal Disease: No Hx Sickle Cell Disease: No Hx Seizures: No Hx Asthma: Yes (last used inhaler 1 week ago) Hx COPD: No Hx HIV: No - Surgical History Past Surgical History?: Yes Additional Surgical History: x2 - Social History Smoking Status: Never Smoker Substance Use Type: None - Medications Home Medications: Home Medications Medication Instructions Recorded Confirmed Last Taken Type Ibuprofen [Motrin] 800 mg PO Q8HR PRN #30 tablet 01/14/17 Unknown Rx oxyCODONE /ACETAMINOPHEN [Percocet 1 tab PO Q6HR PRN #30 tablet 17 Unknown Rx 5/325] ED Physical Exam - General Limitations: No Limitations General appearance: alert, in no apparent distress - Head Head exam: Present: atraumatic, normocephalic - Eye Eye exam: Present: normal appearance - ENT ENT exam: Present: mucous membranes moist - Neck Neck exam: Present: normal inspection - Respiratory Respiratory exam: Present: normal lung sounds bilaterally. Absent: respiratory distress - Cardiovascular Cardiovascular Exam: Present: regular rate, normal rhythm. Absent: systolic murmur, diastolic murmur, rubs, gallop - GI/Abdominal GI/Abdominal exam: Present: soft, tenderness (No Rosales sign no tenderness to the epigastric region on examination ), normal bowel sounds - Extremities Exam Extremities exam: Present: normal inspection - Back Exam Back exam: Present: normal inspection - Neurological Exam Neurological exam: Present: alert, oriented X3 - Psychiatric Psychiatric exam: Present: normal affect, normal mood - Skin Skin exam: Present: warm, dry, intact, normal color. Absent: rash ED Course Vital Signs 07/20/19 07/20/19 02:09 02:41 Temperature 98.2 F Pulse Rate 89 Respiratory 18 18 Rate Blood Pressure 126/80 O2 Sat by Pulse 98 100 Oximetry ED Medical Decision Making - Lab Data Result diagrams: 07/20/19 03:29 07/20/19 03:29 Lab Results 07/20/19 07/20/19 Range/Units 03:29 03:29 WBC 7.4 (4.5-11.0) K/mm3 RBC 3.59 L (3.65-5.03) M/mm3 Hgb 10.8 (10.1-14.3) gm/dl Hct 30.6 (30.3-42.9) % MCV 85 (79-97) fl MCH 30 (28-32) pg MCHC 35 H (30-34) % RDW 15.3 H (13.2-15.2) % Plt Count 323 (140-440) K/mm3 Lymph % (Auto) 31.5 (13.4-35.0) % Levy % (Auto) 8.6 H (0.0-7.3) % Eos % (Auto) 3.1 (0.0-4.3) % Baso % (Auto) 0.4 (0.0-1.8) % Lymph # 2.3 (1.2-5.4) K/mm3 Levy # 0.6 (0.0-0.8) K/mm3 Eos # 0.2 (0.0-0.4) K/mm3 Baso # 0.0 (0.0-0.1) K/mm3 Seg Neutrophils % 56.4 (40.0-70.0) % Seg Neutrophils # 4.2 (1.8-7.7) K/mm3 Sodium 136 L (137-145) mmol/L Potassium 3.9 (3.6-5.0) mmol/L Chloride 99.8 (98-107) mmol/L Carbon Dioxide 23 (22-30) mmol/L Anion Gap 17 mmol/L BUN 4 L (7-17) mg/dL Creatinine 0.5 L (0.7-1.2) mg/dL Estimated GFR > 60 ml/min BUN/Creatinine Ratio 8 % Glucose 99 (65-100) mg/dL Calcium 9.2 (8.4-10.2) mg/dL Total Bilirubin < 0.20 (0.1-1.2) mg/dL Direct Bilirubin < 0.2 (0-0.2) mg/dL Indirect Bilirubin 0.0 mg/dL AST 16 (5-40) units/L ALT 7 (7-56) units/L Alkaline Phosphatase 44 (35-129) units/L Total Protein 7.0 (6.3-8.2) g/dL Albumin 3.9 (3.9-5) g/dL Albumin/Globulin Ratio 1.3 % Lipase 18 (13-60) units/L - Radiology Data Radiology results: [place] [address] Ultrasound Report Signed Patient: LINDSEY CUADRA MR#: [id number] 2 : 1990 Acct:[id number] Age/Sex: 28 / F ADM Date: 07/20/19 Loc: ED Attending Dr: Ordering Physician: KYLEE DOMINIQUE Date of Service: 07/20/19 Procedure(s): US OB >= 14 weeks Fetus Accession Number(s): [id number] cc: KYLEE DOMINIQUE Limited obstetrical ultrasound INDICATION: Right upper quadrant pain and cramping, Single intrauterine is noted. Fetus is in a cephalic position at this time. Placenta is posterior and free of the internal cervical os. cardiac activity was documented with heart rate of 154 bpm. Anatomical survey was not performed but no obvious abnormalities are seen. Estimated gestational age is 20 weeks 6 days which corresponds with clinical dating. I do not see a significant discrepancy between head and body measurements. Estimated weight is 369 g +/- 55 g in the 42nd percentile. Amniotic fluid volume appears qualitatively within normal limits. Cervical length is 4.2 cm. IMPRESSION: 20 week 6 day without obvious abnormality Signer Name: Chavo Tiwari MD Signed: 07/20/2019 3:55 AM Workstation Name: [id number] Transcribed By: MIGUEL Dictated By: Chavo Tiwari MD Electronically Authenticated By: Chavo Tiwari MD Signed Date/Time: 07/20/19354 DD/ 2 TD/TT: Report Status:Finalized Findings [facility] [address] [place] [address] Ultrasound Report Signed Patient: LINDSEY CUADRA MR#: [id number] 2 : 1990 Acct:[id number] Age/Sex: 28 / F ADM Date: 07/20/19 Loc: ED Attending Dr: Ordering Physician: KYLEE DOMINIQUE Date of Service: 07/20/19 Procedure(s): US abdomen limited Accession Number(s): [id number] cc: KYLEE DOMINIQUE ULTRASOUND ABDOMEN, LIMITED (RIGHT UPPER QUADRANT) INDICATION: ruq pain, history cholelithiasis, 20 week COMPARISON: None available. LIMITATIONS: None FINDINGS: Pancreas: Visualized portion shows no significant abnormality. Liver: Patchy fatty infiltration is seen. Liver is enlarged and has a length of 20.6 cm. No obvious focal masses are seen. Gallbladder: Multiple gallstones are seen. No gallbladder wall thickening is no garo. Bile ducts: Normal. Common Bile Duct measures 3 mm. Right Kidney: Visualized portions show no abnormality. Free fluid: None. Additional Findings: None. IMPRESSION: Cholelithiasis without acute change seen Signer Name: Chavo Tiwari MD Signed: 07/20/2019 3:53 AM Workstation Name: [id number] Transcribed By: MIGUEL Dictated By: Chavo Tiwari MD Electronically Authenticated By: Chavo Tiwari MD Signed Date/Time: 07/20/19352 DD/ 0 TD/TT: - Medical Decision Making This patient presents with abdominal pain of unclear etiology. A ultrasound was performed to evaluate for potential causes of the abdominal pain, however, neither the clinical exam nor the ultrasound has identified an emergent etiology for the abdominal pain. Specifically, given the benign exam, the laboratory studies, and unremarkable ultrasound, I have a very low suspicion for appendicitis, ischemic bowel, bowel perforation, or any other life threatening disease. I have discussed with the patient the level of uncertainty with undifferentiated abdominal pain and clearly explained the need to follow-up as noted on the discharge instructions, or return to the Emergency Department immediately if the pain worsens, develops fever, persistent and uncontrollable vomiting, or for any new symptoms or concerns. She is currently CT scan was not performed due to the unnecessary risk based on the laboratory findings and history. She is been advised to follow-up with [facility] for further evaluation and treatment options Critical care attestation.: If time is entered above; I have spent that time in minutes in the direct care of this critically ill patient, excluding procedure time. ED Disposition Clinical Impression: Discomfort during , Cholelithiasis affecting in first trimester, antepartum Disposition: DC-01 TO HOME OR SELFCARE Is pt being admited?: No Does the pt Need Aspirin: No Condition: Stable Instructions: Abdominal Pain (ED) Additional Instructions: Please be sure to follow-up with your [facility] for further evaluation Referrals: PRIMARY CAREMD [Primary Care Provider] - 3-5 Days
== END 2019-07-20 04:35 | disposition home or self-care (01) ==
LOC: ED 02:04
DX: O99.612 Diseases of the digestive system complicating pregnancy, second trimester (principal); K80.80 Other cholelithiasis without obstruction; O99.512 Diseases of the respiratory system complicating pregnancy, second trimester; J45.909 Unspecified asthma, uncomplicated; Z3A.20 20 weeks gestation of pregnancy
CPT/HCPCS: 36415; 76705; 76805; 80048; 80076; 83690; 85025

== ENCOUNTER 2019-11-10 00:29 | Outpatient (CLI) | payer MEDICAID, OTHER ==
[2019-11-10 01:12] VITALS: BP 174/79
--- NOTE | 2019-11-10 03:20 | Ultrasound Report ---
ULTRASOUND BIOPHYSICAL PROFILE / US OB BPP wo non-stress INDICATION: decreased movement. COMPARISON: None available. FINDINGS: Transabdominal ultrasound with Doppler interrogation. heart rate is 146 beats per minute. breathing movement = 2 Gross body movement = 2 tone = 2 Qualitative amniotic fluid volume = 2 IMPRESSION: biophysical profile = 10/28 Signer Name: Luz Marina Prajapati MD Signed: 11/10/2019 3:15 AM Workstation Name: [employer]
== END 2019-11-10 02:52 | disposition home or self-care (01) ==
LOC: TRG 00:29 → APU 00:39 → TRG 02:52
PROVIDERS: ATTEND Obstetrics & Gynecology
DX: O36.8130 Decreased fetal movements, third trimester, not applicable or unspecified (principal); Z3A.37 37 weeks gestation of pregnancy
CPT/HCPCS: 59025; 76819

== ENCOUNTER 2019-11-11 05:17 | Inpatient (IN) | payer MEDICAID ==
--- NOTE | 2019-11-11 03:54 | History and Physical Report ---
History of Present Illness Date of examination: 11/11/19 Chief complaint: gestational hypertension at term History of present illness: Pt is a 28 year old -Surinamese female ROSENDO 12/02/19 at 37w0d and a h/o two prior sections and undesired fertility who presents for repeat section. She denies PIH symptoms presently. She has had care at [facility] with comanagement by [facility] secondary to morbid obesity, pregestional diabetes on Humalin 32 units QHS, two prior sections, asthma, biliary colic, cholelithiasis, multiple patchy liver infilitrates s/p GI referral with appt in September and intention to follow up after delivery, Rubella non-immune status and GBS positive status. She does not desire future fertility. Past History Past Medical History: asthma, hypertension (gestational ), diabetes (insulin dependent ), other (cholelithiasis ) Past Surgical History: section (x 2 ) Family/Genetic History: heart disease, hypertension Social history: no significant social history - Obstetrical History Expected Date of Delivery: 12/02/19 Actual Gestation: 37 Week(s) 0 Day(s) : 5 Para: 3 Hx # Term Pregnancies: 3 Number of Pregnancies: 0 Spontaneous Abortions: 1 Induced : 0 Number of Living Children: 3 Medications and Allergies Allergies Allergy/AdvReac Type Severity Reaction Status Date / Time No Known Allergies Allergy Verified 03/12/14 17:20 Home Medications Medication Instructions Recorded Confirmed Last Taken Type Ibuprofen [Motrin] 800 mg PO Q8HR PRN #30 tablet 01/14/17 Unknown Rx oxyCODONE /ACETAMINOPHEN [Percocet 1 tab PO Q6HR PRN #30 tablet 01/14/17 Unknown Rx 5/325] Active Meds: Active Medications Citric Acid/Sodium Citrate (Bicitra) 30 ml PO ONCE ONE Stop: 11/11/19 05:01 Famotidine (Pepcid) 20 mg IV ONCE ONE Stop: 11/11/19 05:01 Oxytocin/Sodium Chloride (Pitocin/Ns 20 Unit/1000ml Drip) 20 units in 1,000 mls @ 0 mls/hr IV TITR SYLVIA Lactated Ringer's (Lactated Ringers) 1,000 mls @ 2,250 mls/hr IV PREOP SYLVIA Stop: 11/12/19 05:27 Cefazolin Sodium (Ancef/Sterile Water 2 Gm/20 Ml) 2 gm in 20 mls @ 80 mls/hr IV PREOP NR; Protocol Metoclopramide HCl (Reglan) 10 mg IV ONCE ONE Stop: 11/11/19 05:01 Review of Systems All systems: negative - Physical Exam Breasts: Positive: deferred Abdomen: Positive: soft (obese, gravid ) Uterus: Positive: enlarged (gravid ) Extremities: Positive: edema (trace ) - Obstetrical FHR: auscultation normal Uterine Contraction Monitor Mode: External Results All other labs normal. Assessment and Plan A: IUP at 37w0d Gestational Hypertension Insulin Dependent Diabetes Mellitus Morbid Obesity Asthma Cholelithiasis with biliary colic Multiple patchy liver infiltrates s/p GI referral and plan for follow up Rubella Non-Immune status GBS positive Undesired Fertility- consent signed and on chart P: Collect admission labs and PIH panel Proceed with repeat section, bilateral tubal ligation and other indicated procedures
[~2019-11-11 05:17] MED LIST changes: -ANCEF/STERILE WATER 2 GM/20 ML 2 GM/20 ML SYRINGE IV NR; -BICITRA PO NR; +LACTATED RINGERS 1,000 ML IV SCH; +OXYTOCIN 20 UNIT/1000ML DRIP 20 UNITS/1,000 ML BAG IV SCH; -PEPCID IV NR; -REGLAN IV NR
[2019-11-11] MEDS ORDERED: BICITRA ORAL LIQD 30ML PO ONE (05:45)
[2019-11-11] MEDS ORDERED: FAMOTIDINE 20 MG/2 ML INJ IV ONE (05:45)
[2019-11-11] MEDS ORDERED: ceFAZolin/Water 2 GM/20 ML 2 GM/20 ML SYRINGE IV NR (05:45)
[2019-11-11] MEDS ORDERED: METOCLOPRAMIDE 10 MG/2 ML INJ IV ONE (05:45)
[2019-11-11 06:56] LABS: Basophils % (Auto) 0.8 % (0.0-1.8); Eosinophils # (Auto) 0.1 K/mm3 (0.0-0.4); Eosinophils % (Auto) 1.5 % (0.0-4.3); Hemoglobin 10.2 gm/dl (10.1-14.3); Lymphocytes # (Auto) 1.9 K/mm3 (1.2-5.4); Lymphocytes % (Auto) 31.4 % (13.4-35.0); Mean Corpuscular HGB Conc 34 % (30-34); Mean Corpuscular Volume 85 fl (79-97); Monocytes # (Auto) 0.7 K/mm3 (0.0-0.8); Monocytes % (Auto) 11.1 % (0.0-7.3); Platelet Count 256 K/mm3 (140-440); Red Blood Count 3.53 M/mm3 (3.65-5.03); Red Cell Distribution Width 15.8 % (13.2-15.2)
--- NOTE | 2019-11-11 06:57 | Anesthesia Day of Surgery ---
Anesthesia Day of Surgery - Day of Surgery Patient Examined: Yes Patient H&P Reviewed: Yes Patient is NPO: Yes Beta Blockers: No Cardiac Clearance: No Pulmonary Clearance: No Tyrone's Test: N/A
--- NOTE | 2019-11-11 07:01 | Anesthesia Consultation ---
Anesthesia Consult and Med Hx Date of service: 11/11/19 - Airway Anesthetic Teeth Evaluation: Poor ROM Head & Neck: Adequate Mental/Hyoid Distance: Adequate Mallampati Class: Class III Intubation Access Assessment: Probably Good - Pulmonary Exam CTA: Yes - Cardiac Exam Cardiac Exam: RRR - Pre-Operative Health Status ASA Pre-Surgery Classification: ASA3 Proposed Anesthetic Plan: Spinal - Pre-Anesthesia Comment Pre-Anesthesia Comments: csectionx 2, no anethesia complications - Pulmonary Hx Smoking: No Hx Asthma: Yes (last attach 2014, used inhiler 4 months ago) Hx Respiratory Symptoms: No SOB: No COPD: No Home Oxygen Therapy: No Hx Pneumonia: No Hx Sleep Apnea: No - Cardiovascular System Hx Hypertension: No Hx Coronary Artery Disease: No Hx Heart Attack/AMI: No Hx Angina: No Hx Percutaneous Transluminal Coronary Angioplasty (PTCA): No Hx Cardia Arrhythmia: No Hx Pacemaker: No Hx Internal Defibrillator: No Hx Valvular Heart Disease: No Hx Heart Murmur: No Hx Peripheral Vascular Disease: No - Central Nervous System Hx Neuromuscular Disorder: No Hx Seizures: No CVA: No Hx Back Pain: Yes Hx Psychiatric Problems: No - Gastrointestinal Hx Ulcer: No Hx Gastroesophageal Reflux Disease: Yes (cholelithiasis) - Endocrine Hx Renal Disease: No Hx End Stage Renal Disease: No Hx Cirrhosis: No Hx Liver Disease: No (multiple patchy liver infiltrates) Hx Non-Insulin Dependent Diabetes: Yes (gestational on insulin) Hx Thyroid Disease: No Hx Hypothyroidism: No Hx Hyperthyroidism: No - Hematic Hx Anemia: No Hx Sickle Cell Disease: No - Other Systems Hx Alcohol Use: No Hx Substance Use: No Hx Cancer: No Hx Obesity: Yes (morbid obesity BMI 44.6)
[2019-11-11] MEDS ORDERED: HYDROmorphone 1 MG/1 ML INJ IV PRN (07:02)
[2019-11-11] MEDS ORDERED: NALOXONE 0.4 MG/1 ML INJ IV PRN ×2 (07:02→12:12)
[2019-11-11] MEDS ORDERED: ONDANSETRON 4 MG/2 ML INJ IV PRN ×2 (07:02→12:12)
[2019-11-11] MEDS ORDERED: DEXMEDETOMIDINE 200 MCG/2 ML VIAL IV ONE (07:17)
[2019-11-11 07:18] LABS: Alanine Aminotransferase 9 units/L (7-56); Uric Acid 5.7 mg/dL (3.5-7.6)
[2019-11-11] MEDS ORDERED: ONDANSETRON 4 MG/2 ML INJ ONE (07:22)
[2019-11-11] MEDS ORDERED: ceFAZolin 1 GM VIAL ONE (07:53)
[2019-11-11] MEDS ORDERED: LACTATED RINGERS 1,000 ML ONE (07:58)
[2019-11-11] MEDS ORDERED: SODIUM CHLORIDE 0.9% IRR 1,500 ML BOTTLE IR ONE (08:00)
[2019-11-11] MEDS ORDERED: WATER FOR IRRIG STERILE 1,500 ML BOTTLE IR ONE (08:00)
[2019-11-11] MEDS ORDERED: OXYTOCIN 10 UNIT/1 ML INJ ONE (08:46)
[2019-11-11] MEDS ORDERED: PHENYLEPHRINE/NS 1,000 MCG/10 ML SYRINGE (OR USE) IV ONE (09:00)
--- NOTE | 2019-11-11 09:58 | Operative Report ---
Operative Report Operative Report: Date of procedure: November 11, 2019 Preoperative diagnosis: 1) IUP at 37w0d 2) Gestational Hypertension 3) Previous x 2 4) Insulin Dependent Diabetes 5) Morbid Obesity BMI 49.6 6) Undesired Fertility Postoperative diagnosis: Same Procedure: 1) Repeat low transverse section 2) Bilateral tubal ligation via modified Menno method Surgeon: Leona Sheets M.D. Anesthesia: Regional Findings: 1) Viable male , Apgars 8 and 8, weight 3260, (7lb 3oz) in cephalic presentation 2) Normal appearing ovaries and tubes Estimated blood loss: 1000 mL Urine output: 150 mL, clear at the end of the procedure Drains: Noble to gravity Specimens: Placenta,Tubal segments to pathology Complications: Counts correct x 3 Disposition: Stable to PACU Indication for procedure: Pt is a 28 year old at 37 wks with gestational hypertension, two prior sections and undesired fertility presents for repeat section. Operation in Detail: After the risks, benefits, alternatives and complications were explained to the patient she gave informed consent for the procedure. She was subsequently taken to the operating room where regional anesthesia was noted to be adequate. She was then placed in the dorsal supine position with leftward tilt and prepped and draped in a normal sterile fashion. heart tones were noted prior to incision. A timeout was performed. A Pfannenstiel skin incision was made with the knife and carried down to the layer of the fascia with the Bovie. The fascia was incised in the midline and the fascial incision was extended bilaterally with the Bovie. The fascial incision was then stretched. The rectus muscles were then in the midline and partially transected for adequate visualization and partially transected. The peritoneum was then entered sharply between two Estrella clamps. The peritoneal incision was extended with good visualization of the bladder. The peritoneal incision was then stretched. An Jose R retractor was placed. The bladder blade was placed. A transverse incision was made with a knife in the lower uterine segment. The hysterotomy was stretched. The head was delivered without difficulty followed by delivery of the shoulders and body. was bulb suctioned at delivery. The cord was clamped and cut and the was handed to NICU staff in attendance. Cord blood was collected. The placenta was then delivered manually. The uterus was exteriorized and cleared of all clots and debris. The hysterotomy was then reapproximated with 0 Vicryl in a running locked fashion. A second suture was used for a two layer closure in an imbricated fashion. Additional figure of eights were placed at the left side of the hysterotomy to obtain hemostasis. The hysterotomy was inspected and hemostasis was noted. Attention was then turned to the tubal ligation. The left tube was identified, grasped with a bebeto and followed out to the fimbriae. The tube was suture ligated via a modified Menno method using 0 plain suture. The intervening tubal segment was excised and sent to pathology. The right tube was then identified, followed out to the fimbriae and suture ligated via a modified Menno method using 0 chromic suture. The intervening tubal segment was excised and sent to pathology. The mesosalpinx of the left tube was then reapproximated with 4-0 Vicryl in a running fashion to obtain hemostasis. Hemostasis was noted. Surgicel was placed over the tubal ostia bilaterally. The uterus was returned to the peritoneal cavity. The Jose R retractor was removed. The gutters were irrigated and cleared of all clots and debris. The hysterotomy was again inspected and noted to be hemostatic. Surgicel was placed over the hysterotomy.The peritoneum was reapproximated with 2-0 Vicryl in a running fashion incorporating the rectus muscles. Surgicel was placed over the rectus muscles. The fascia was reapproximated with 0-Vicryl in a running fashion. The subcutaneous tissue was reapproximated with 3-0 Vicryl in a running fashion. The skin was reapproximated with 4-0 Vicryl in a subcuticular fashion. The incision was then covered with steri strips and a pressure dressing. The procedure was then ended. The patient tolerated the procedure well and was taken to the PACU in stable condition. All instrument, lap, and needle counts were correct 3.
--- NOTE | 2019-11-11 09:58 | Procedure Note ---
OB Delivery Note - Delivery Date of Delivery: 11/11/19 Surgeon: BALDO JACKSON Estimated blood loss: 1000cc - Section Preop diagnosis: repeat , desires sterilization, other (Gestational HTN ) Postop diagnosis: same section procedure: section, repeat low transverse, bilateral tubal ligation Disposition: PACU Complications: none Narrative: Please see operative report - A at 1 minute: 8 at 5 minutes: 8 Gender: Male (3260g (7lb 3oz) @ 0833 am)
[2019-11-11] MEDS ORDERED: DEXTROSE 50% IN WATER (25GM) 50 ML SYRINGE IV PRN (10:30)
[2019-11-11] MEDS ORDERED: MORPHINE 4 MG/1 ML INJ IV ONE (12:07)
[2019-11-11] MEDS ORDERED: MORPHINE 4 MG/1 ML INJ IV PRN (12:12)
[2019-11-11] MEDS ORDERED: MAGNESIUM HYDROXIDE (MOM) ORAL LIQD UDC PO PRN (12:12)
[2019-11-11] MEDS ORDERED: LANOLIN/ZINC/DIMETHICONE (LANSINOH) 7 GM TP PRN (12:12)
[2019-11-11] MEDS ORDERED: OXYTOCIN 20 UNIT/1000ML DRIP 20 UNITS/1,000 ML BAG IV SCH (12:12)
[2019-11-11] MEDS ORDERED: WITCH HAZEL/ GLYCERIN PAD TP PRN (12:12)
[2019-11-11] MEDS ORDERED: SIMETHICONE 80 MG CHEW TAB PO PRN (12:12)
[2019-11-11] MEDS ORDERED: MORPHINE 2 MG/1 ML INJ IV PRN (12:12)
[2019-11-11] MEDS: KETOROLAC 30 MG/1 ML INJ IV SCH ×2 (13:23→18:15)
[2019-11-11] MEDS ORDERED: LACTATED RINGERS 1,000 ML IV SCH (14:00)
[2019-11-11] MEDS: ceFAZolin/NS 1 GM/50 ML 1 GM/50 ML BAG IV SCH (16:00)
[2019-11-11] MEDS: INSULIN REGULAR, HUMAN 100 UNIT/ML 3ML VIAL SUB-Q SCH ×2 (17:33→18:18)
[2019-11-11 21:04] LABS: Hematocrit 29.5 % (30.3-42.9)
[2019-11-12] MEDS: ceFAZolin/NS 1 GM/50 ML 1 GM/50 ML BAG IV SCH (00:06)
[2019-11-12] MEDS: KETOROLAC 30 MG/1 ML INJ IV SCH ×2 (00:06→07:32)
[2019-11-12 02:04] LABS: Bacteria,Urine 1+ /HPF (Negative); Bilirubin,Urine NEG (Negative); Blood,Urine SM (Negative); Color,Urine Yellow (Yellow); Mucus,Urine 2+ /HPF; Protein,Urine <15 mg/dL mg/dL (Negative); Urobilinogen,Urine < 2.0 mg/dL (<2.0)
[2019-11-12] MEDS: oxyCODONE /ACETAMINOPHEN 5-325MG TAB PO PRN ×4 (04:33→21:13)
[2019-11-12] MEDS ORDERED: DIPHtheria,PERTUSSIS(ACELL),TETANUS VACCINE/PF 0.5 ML VIAL IM ONE (06:00)
[2019-11-12] MEDS: FERROUS SULFATE 325 MG TAB PO SCH (08:52)
[2019-11-12] MEDS: IBUPROFEN 800 MG TAB PO PRN (08:54)
--- NOTE | 2019-11-12 09:20 | Progress Note ---
Assessment and Plan A: POD1 s/p rLTCS and BTL Gestational HTN Type 2 DM Vital signs stable Acute on chronic mild anemia due to and blood loss P: BG QAC/HS Ferrous sulfate supplementation Bowel regimen Subjective - Subjective Date of service: 11/12/19 Principal diagnosis: s/p rLTCS and BTL Interval history: POD1 s/p repeat LTCS and BTL for gestational hypertension. Patient reports: appetite normal, voiding normally, pain well controlled, ambulating normally, no flatus : doing well, bottle feeding (wants to breast feed) Objective - Vital Signs Latest vital signs: Vital Signs Temp Pulse Resp BP BP Pulse Ox 11/12/19 08:54 20 11/12/19 08:27 98.4 F 76 18 129/53 95 11/12/19 00:28 98.1 F 81 20 119/58 95 11/11/19 20:07 98.2 F 85 20 152/69 97 11/11/19 17:31 99.5 F 76 19 139/71 99 11/11/19 11:30 99.6 F 64 20 125/51 99 11/11/19 10:50 97.8 F 72 14 106/50 100 11/11/19 10:45 65 14 129/78 100 11/11/19 10:30 60 12 102/48 100 11/11/19 10:15 54 L 12 116/51 100 11/11/19 10:00 53 L 14 100/58 99 11/11/19 09:56 67 14 122/62 99 11/11/19 09:52 76 12 110/59 99 11/11/19 09:48 97.8 F 88 12 107/56 99 Intake and Output 11/11/19 11/12/19 11/12/19 23:59 07:59 15:59 Intake Total 830 1650 Output Total 200 900 Balance 630 750 Intake: IV 50 1050 ANCEF/NS 1 GM/50 ML 1 gm 50 50 In 50 ml @ 100 mls/hr IV Q8H SYLVIA Rx#:[id number] Lactated Ringers 1,000 ml 1000 @ 125 mls/hr IV DIRECT SYLVIA Rx#:[id number] Oral 780 600 Output: Urine 200 900 Indwelling Catheter 200 500 Void 400 Other: Total, Intake Amount 240 360 Total, Output Amount 200 400 # Voids Indwelling Catheter 1 - Exam Lungs: Present: Normal air movement Abdomen: Present: soft. Absent: distention Uterus: Present: firm, fundal height below umbilicus. Absent: bogginess Extremities: Present: normal Incision: Present: dressed - Labs Labs: Abnormal lab results 11/11/19 11/12/19 11/12/19 Range/Units 20:41 00:50 07:03 Hgb 10.0 L (10.1-14.3) gm/dl Hct 29.5 L (30.3-42.9) % POC Glucose 119 H (70-105) Urine WBC (Auto) 14.0 H (0.0-6.0) /HPF
[2019-11-12] MEDS ORDERED: MEASLES, MUMPS & RUBELLA 12,500 UNIT/0.5 ML VACCINE SUB-Q ONE (09:59)
[2019-11-12] MEDS: MAGNESIUM HYDROXIDE (MOM) ORAL LIQD UDC PO SCH (15:32)
[2019-11-13] MEDS: oxyCODONE /ACETAMINOPHEN 5-325MG TAB PO PRN ×3 (03:00→16:44)
[2019-11-13] MEDS: FERROUS SULFATE 325 MG TAB PO SCH (08:52)
--- NOTE | 2019-11-13 10:00 | Progress Note ---
Assessment and Plan A: POD2 s/p rLTCS and BTL Gestational HTN Type 2 DM Vital signs stable Acute on chronic mild anemia due to and blood loss Abdominal distention P: BG QAC/HS Ferrous sulfate supplementation Bowel regimen Subjective - Subjective Date of service: 11/13/19 Principal diagnosis: s/p rLTCS and BTL Interval history: POD2 s/p repeat LTCS and BTL for gestational hypertension. Patient reports: appetite normal, voiding normally, pain poorly controlled (gas pain), ambulating normally, no flatus [place]: doing well, nursing well (both), bottle feeding Objective - Vital Signs Latest vital signs: Vital Signs Temp Pulse Resp BP Pulse Ox 11/13/19 08:51 20 11/13/19 07:50 98.1 F 95 H 16 130/61 97 11/13/19 03:00 18 11/13/19 00:35 98.2 F 95 H 20 130/67 98 11/12/19 21:13 18 11/12/19 16:35 98.2 F 84 20 121/50 96 11/12/19 15:29 20 Intake and Output 11/12/19 11/13/19 11/13/19 23:59 07:59 15:59 Intake Total 680 240 Balance 680 240 Intake: Oral 440 240 Intake, Free Water 240 Other: Total, Intake Amount 200 240 # Voids Void 1 1 - Exam Lungs: Present: Normal air movement Abdomen: Present: soft, distention, normal bowel sounds Uterus: Present: firm, fundal height below umbilicus. Absent: bogginess Incision: Present: dressed - Labs Labs: Abnormal lab results 11/12/19 Range/Units 11:35 POC Glucose 110 H (70-105)
--- NOTE | 2019-11-13 10:03 | Discharge Summary ---
Providers - Providers Date of Admission: 11/11/19 05:17 Date of discharge: 11/14/19 Attending physician: BALDO JACKSON Primary care physician: BALDO JACKSON Hospitalization Reason for admission: section, IUP at term Delivery: Procedure: bilateral tubal ligation, repeat low transverse Incision: normal, dry, intact Other procedures: none complications: none Discharge diagnosis: IUP at term delivered Hospital course: Pt presented for repeat and BTL secondary to gestational hypertension and undesired fertility. Surgery was uncomplicated. She met discharge criteria on POD2. Condition at discharge: Good Disposition: DC-01 TO HOME OR SELFCARE Plan - Discharge Medications Prescriptions: Ferrous Sulfate [Feosol 325 MG tab] 325 mg PO QDAY #30 tablet Ibuprofen [Motrin] 800 mg PO Q8HR PRN #60 tablet PRN Reason: Pain , Severe (7-10) oxyCODONE /ACETAMINOPHEN [Percocet 5/325] 1 tab PO Q6HR PRN #30 tablet PRN Reason: Pain - Provider Discharge Summary Activity: routine, no sex for 6 weeks, no heavy lifting 4 weeks, no strenuous exercise Diet: routine Instructions: routine Additional instructions: [] Smoking cessation referral if applicable(refer to patient education folder for contact #) [] Refer to [facility] Booklet Call your doctor immediately for: * Fever > 100.5 * Heavy vaginal bleeding ( >1 pad per hour) * Severe persistent headache * Shortness of breath * Reddened, hot, painful area to leg or breast * Drainage or odor from incision. * Keep incision clean and dry at all times and follow doctor's instructions regarding bathing/showering - Follow up plan Follow up: [facility] CNM [Advanced Practice Nurse] - 7 Days (Please call office to schedule appointment.) Forms: [facility] Discharge Summary
[2019-11-13] MEDS ORDERED: MAGNESIUM HYDROXIDE (MOM) ORAL LIQD UDC PO PRN ×2 (11:18→22:00)
[2019-11-13] MEDS ORDERED: MAGNESIUM HYDROXIDE (MOM) ORAL LIQD UDC ONE (11:21)
[2019-11-13] MEDS: MAGNESIUM HYDROXIDE (MOM) ORAL LIQD UDC PO SCH (11:23)
[2019-11-13] MEDS: INSULIN REGULAR, HUMAN 100 UNIT/ML 3ML VIAL SUB-Q SCH (22:36)
[2019-11-14] MEDS: IBUPROFEN 800 MG TAB PO PRN (00:42)
[2019-11-14] MEDS ORDERED: DIPHtheria,PERTUSSIS(ACELL),TETANUS VACCINE/PF 0.5 ML VIAL IM ONE (06:00)
[2019-11-14] MEDS: oxyCODONE /ACETAMINOPHEN 5-325MG TAB PO PRN (08:30)
[2019-11-14] MEDS: INSULIN REGULAR, HUMAN 100 UNIT/ML 3ML VIAL SUB-Q SCH (08:50)
[2019-11-14 10:10] VITALS: BP 139/77
== END 2019-11-14 11:00 | disposition home or self-care (01) | DRG 765 ==
LOC: APU 05:17 → OB 11:18
PROVIDERS: ADMIT Obstetrics & Gynecology; ATTEND Obstetrics & Gynecology
PROC: 10D00Z1 Extraction of Products of Conception, Low, Open Approach (ICD-10-PCS; principal; 2019-11-11)
PROC: 0UB70ZZ Excision of Bilateral Fallopian Tubes, Open Approach (ICD-10-PCS; 2019-11-11)
PROC: 3E0234Z Introduction of Serum, Toxoid and Vaccine into Muscle, Percutaneous Approach (ICD-10-PCS; 2019-11-12)
PROC: 3E0234Z Introduction of Serum, Toxoid and Vaccine into Muscle, Percutaneous Approach (ICD-10-PCS; 2019-11-14)
DX: O34.211 Maternal care for low transverse scar from previous cesarean delivery (principal); O24.12 Pre-existing type 2 diabetes mellitus, in childbirth; O13.4 Gestational [pregnancy-induced] hypertension without significant proteinuria, complicating childbirth; D62 Acute posthemorrhagic anemia; Z37.0 Single live birth; O99.214 Obesity complicating childbirth; E66.01 Morbid (severe) obesity due to excess calories; O99.52 Diseases of the respiratory system complicating childbirth; J45.909 Unspecified asthma, uncomplicated; E11.9 Type 2 diabetes mellitus without complications; Z82.49 Family history of ischemic heart disease and other diseases of the circulatory system; K80.70 Calculus of gallbladder and bile duct without cholecystitis without obstruction; Z3A.37 37 weeks gestation of pregnancy; O99.62 Diseases of the digestive system complicating childbirth; O99.824 Streptococcus B carrier state complicating childbirth; O90.81 Anemia of the puerperium; Z23 Encounter for immunization; Z30.2 Encounter for sterilization
CPT/HCPCS: 36415; 59025; 76819; 81001; 82565; 82962; 83615; 84450; 84460; 84550; 85014; 85018; 85025; 86850; 86900; 86901; 87086; 88302; 88307; 90471; 90715; G0378; J0690; J1815; J1885; J2270; J2370; J2405; J2590; J2765; J3490; J7120

== ENCOUNTER 2019-12-03 02:06 | Emergency (ER) | payer MEDICAID ==
[2019-12-03 03:45] LABS: Alanine Aminotransferase 14 units/L (7-56); Albumin 4.2 g/dL (3.9-5); BUN/Creatinine Ratio 12; Blood Urea Nitrogen 11 mg/dL (7-17); Calcium 9.2 mg/dL (8.4-10.2); Hemolysis Index 5
[2019-12-03 03:51] LABS: Hematocrit 32.4 % (30.3-42.9); Hemoglobin 10.6 gm/dl (10.1-14.3); Mean Corpuscular HGB Conc 33 % (30-34); Mean Corpuscular Volume 83 fl (79-97); Platelet Count 438 K/mm3 (140-440); Red Blood Count 3.88 M/mm3 (3.65-5.03); Red Cell Distribution Width 15.8 % (13.2-15.2)
[2019-12-03] MEDS ORDERED: ASPIRIN 325 MG TAB PO ONE (03:56)
[2019-12-03] MEDS ORDERED: FAMOTIDINE 20 MG TAB PO ONE (03:56)
--- NOTE | 2019-12-03 04:27 | XRay Report ---
CHEST 1 VIEW INDICATION: CHEST PAIN. COMPARISON: None. FINDINGS: Support devices: None. Heart: Mild cardiac enlargement. Lungs/Pleura: No acute air space or interstitial disease. Additional findings: None. IMPRESSION: 1. Mild cardiac. Signer Name: Prince Carrasco MD Signed: 12/03/2019 4:23 AM Workstation Name: [id number]
[2019-12-03 04:55] LABS: Basophils % (Manual) 0 % (0.0-1.8); Total Cells Counted 100
[2019-12-03 04:56] LABS: Hypochromasia Few; Platelet Estimate Consistent w Auto
[2019-12-03 06:07] LABS: Bilirubin,Urine NEG (Negative); Blood,Urine LG (Negative); Color,Urine Yellow (Yellow); Mucus,Urine FEW /HPF; Protein,Urine <15 mg/dL mg/dL (Negative); Urobilinogen,Urine < 2.0 mg/dL (<2.0)
--- NOTE | 2019-12-03 06:29 | Emergency Department Report ---
ED General Adult HPI - General Chief complaint: Chest Pain Stated complaint: CHEST PAIN Source: patient Mode of arrival: Stretcher Limitations: No Limitations - History of Present Illness Initial comments: Patient is a 28-year-old -Cypriot female with a history of asthma and morbid obesity who presents to the ED with complaint of acute onset epigastric pain that radiates to the substernal area persistently with nausea for the last 2 hours. Patient states that she ate her dinner about 1 hour prior to the onset of the symptoms. Patient states that the dinner consisted of lasagna and the pain has been persistent and she took Tums at home prior to arrival in the ED. Patient states that while waiting for a room in the ED, the epigastric and the substernal pain resolved. Patient denies diaphoresis, vomiting, shortness of breath, sore throat, headache, dizziness, syncope, seizures, dysuria, urinary frequency and urgency, vaginal bleeding, vaginal discharge, back pain, diarrhea, fever and chills or cough. MD Complaint: Epigastric pain radiating to chest after eating; nausea -: Sudden, hour(s) (2) Location: chest, abdomen Radiation: abdomen (epigastric ), other (substernal chest ) Severity scale (0 -10): 0 Quality: burning, aching, sharp Consistency: constant Improves with: none Worsens with: eating Associated Symptoms: denies other symptoms, chest pain (substernal), loss of appetite, malaise. denies: confusion, cough, diaphoresis, fever/chills, headaches, nausea/vomiting, rash, seizure, shortness of breath, syncope, weakness Treatments Prior to Arrival: other (Tums) - Related Data Previous Rx's Medication Instructions Recorded Last Taken Type Ibuprofen [Motrin] 800 mg PO Q8HR PRN #30 tablet 01/14/17 Unknown Rx oxyCODONE /ACETAMINOPHEN [Percocet 1 tab PO Q6HR PRN #30 tablet 01/14/17 Unknown Rx 5/325] Ibuprofen [Motrin] 800 mg PO Q8HR PRN #60 tablet 11/12/19 Unknown Rx oxyCODONE /ACETAMINOPHEN [Percocet 1 tab PO Q6HR PRN #30 tablet 11/12/19 Unknown Rx 5/325] Ferrous Sulfate [Feosol 325 MG tab] 325 mg PO QDAY #30 tablet 08/23/20 Unknown Rx Dicyclomine [Bentyl] 20 mg PO Q6H PRN #24 tablet 12/03/19 Unknown Rx Famotidine [Pepcid] 20 mg PO BID #60 tablet 12/03/19 Unknown Rx Ondansetron [Zofran Odt] 4 mg PO Q6HR PRN #15 tab.rapdis 12/03/19 Unknown Rx Sulfamethoxazole/Trimethoprim 1 each PO Q12H #20 tablet 12/03/19 Unknown Rx [Bactrim DS TAB] Allergies Allergy/AdvReac Type Severity Reaction Status Date / Time No Known Allergies Allergy Verified 03/12/14 17:20 ED Review of Systems ROS: Stated complaint: CHEST PAIN Other details as noted in HPI Constitutional: denies: chills, fever Eyes: denies: eye pain, eye discharge, vision change ENT: denies: ear pain, throat pain Respiratory: denies: cough, shortness of breath, wheezing Cardiovascular: chest pain (Substernal). denies: palpitations Endocrine: no symptoms reported Gastrointestinal: abdominal pain (Epigastric pain), nausea. denies: diarrhea Genitourinary: denies: urgency, dysuria, discharge Musculoskeletal: denies: back pain, joint swelling, arthralgia Skin: denies: rash, lesions Neurological: denies: headache, weakness, paresthesias Psychiatric: denies: anxiety, depression Hematological/Lymphatic: denies: easy bleeding, easy bruising ED Past Medical Hx - Past Medical History Hx Hypertension: No Hx Heart Attack/AMI: No Hx Congestive Heart Failure: No Hx Diabetes: No Hx Deep Vein Thrombosis: No Hx Liver Disease: (multiple patchy liver infiltrates) Hx Renal Disease: No Hx Sickle Cell Disease: No Hx Seizures: No Hx Asthma: Yes (last attach 2014, used inhiler 4 months ago) Hx COPD: No Hx HIV: No Additional medical history: Gallstones - Surgical History Past Surgical History?: Yes Hx Pacemaker: No Hx Internal Defibrillator: No Additional Surgical History: x2 - Social History Smoking Status: Never Smoker Substance Use Type: None - Medications Home Medications: Home Medications Medication Instructions Recorded Confirmed Last Taken Type Ibuprofen [Motrin] 800 mg PO Q8HR PRN #30 tablet 01/14/17 11/12/19 Unknown Rx oxyCODONE /ACETAMINOPHEN [Percocet 1 tab PO Q6HR PRN #30 tablet 01/14/17 11/12/19 Unknown Rx 5/325] Ibuprofen [Motrin] 800 mg PO Q8HR PRN #60 tablet 11/12/19 Unknown Rx oxyCODONE /ACETAMINOPHEN [Percocet 1 tab PO Q6HR PRN #30 tablet 11/12/19 Unknown Rx 5/325] Ferrous Sulfate [Feosol 325 MG tab] 325 mg PO QDAY #30 tablet 11/13/19 Unknown Rx Dicyclomine [Bentyl] 20 mg PO Q6H PRN #24 tablet 12/03/19 Unknown Rx Famotidine [Pepcid] 20 mg PO BID #60 tablet 12/03/19 Unknown Rx Ondansetron [Zofran Odt] 4 mg PO Q6HR PRN #15 tab.rapdis 12/03/19 Unknown Rx Sulfamethoxazole/Trimethoprim 1 each PO Q12H #20 tablet 12/03/19 Unknown Rx [Bactrim DS TAB] ED Physical Exam - General Limitations: No Limitations General appearance: alert, in no apparent distress - Head Head exam: Present: atraumatic, normocephalic, normal inspection - Eye Eye exam: Present: normal appearance, PERRL, EOMI Pupils: Present: normal accommodation - ENT ENT exam: Present: normal exam, normal orophraynx, mucous membranes moist, TM's normal bilaterally, normal external ear exam - Neck Neck exam: Present: normal inspection, full ROM - Respiratory Respiratory exam: Present: normal lung sounds bilaterally. Absent: respiratory distress, wheezes, rales, rhonchi, chest wall tenderness, accessory muscle use, decreased breath sounds, prolonged expiratory - Cardiovascular Cardiovascular Exam: Present: regular rate, normal rhythm, normal heart sounds. Absent: systolic murmur, diastolic murmur, rubs, gallop - GI/Abdominal GI/Abdominal exam: Present: soft, normal bowel sounds. Absent: tenderness, guarding, rebound, hyperactive bowel sounds, hypoactive bowel sounds - Extremities Exam Extremities exam: Present: normal inspection, full ROM, normal capillary refill - Back Exam Back exam: Present: normal inspection, full ROM. Absent: tenderness, CVA tenderness (R), CVA tenderness (L), muscle spasm, paraspinal tenderness - Neurological Exam Neurological exam: Present: alert, oriented X3, CN II-XII intact, normal gait, reflexes normal - Psychiatric Psychiatric exam: Present: normal affect, normal mood - Skin Skin exam: Present: warm, dry, intact, normal color. Absent: rash ED Course Vital Signs 12/03/19 02:54 Temperature 98.1 F Pulse Rate 68 Respiratory 18 Rate Blood Pressure 155/93 O2 Sat by Pulse 100 Oximetry ED Medical Decision Making - Lab Data Result diagrams: 12/03/19 03:10 12/03/19 03:10 - EKG Data EKG shows normal: sinus rhythm, ST-T waves Rate: normal - EKG Data Interpretation: normal EKG 12/03/19 06:40 Sinus arrhythmia with ventricular rate of [address] or T wave abnormalities - Radiology Data Radiology results: report reviewed, image reviewed Findings [facility] [address] [place] [address] XRay Report Signed Patient: LINDSEY CUADRA MR#: [id number] 2 : 1990 Acct:[id number] Age/Sex: 28 / F ADM Date: 12/03/19 Loc: ED Attending Dr: Ordering Physician: KYLEE SANDOVAL Date of Service: 12/03/19 Procedure(s): XR chest 1V ap Accession Number(s): [id number] cc: KYLEE SANDOVAL Fluoro Time In Minutes: CHEST 1 VIEW INDICATION: CHEST PAIN. COMPARISON: None. FINDINGS: Support devices: None. Heart: Mild cardiac enlargement. Lungs/Pleura: No acute air space or interstitial disease. Additional findings: None. IMPRESSION: 1. Mild cardiac. Signer Name: Prince Carrasco MD Signed: 12/03/2019 4:23 AM Workstation Name: [id number] Transcribed By: ES Dictated By: Prince Carrasco MD Electronically Authenticated By: Prince Carrasco MD Signed Date/Time: 12/03/19422 DD/ 1 TD/TT: - Medical Decision Making This is a 28-year-old -Cyp[place] female with a history of asthma and morbid obesity who presents to the ED with complaint of acute onset epigastric pain that radiates to the substernal area persistently with nausea for the last 2 hours. Patient states that she ate her dinner about 1 hour prior to the onset of the symptoms. Patient states that the dinner consisted of lasagna and the pain has been persistent and she took Tums at home prior to arrival in the ED. Patient states that while waiting for a room in the ED, the epigastric and the substernal pain resolved. In the ED, patient is alert and oriented x3 and is not in distress. Patient was treated in the ED with antacids and aspirin. EKG shows sinus arrhythmia with ventricular rate of [address] or T wave abno rmalities. Patient however has no cardiac risk factors and heart score is 0. Chest x-ray shows mild cardiomegaly. Lab test results were reviewed and showed mild AST elevation of 41, and urinalysis showed significant urinary tract infection. Patient was discharged home on antibiotics, antacids and antiemetics and was advised to follow-up with [facility] physician or primary care physician in 5 to 7 days for reevaluation return to the ED immediately if symptoms get worse. Vital signs prior to being discharged from the ED was stable. - Differential Diagnosis GERD; gastritis; cholelithiasis; pancreatitis; UTI; ACS Critical care attestation.: If time is entered above; I have spent that time in minutes in the direct care of this critically ill patient, excluding procedure time. ED Disposition Clinical Impression: Acute epigastric pain, Acute urinary tract infection GERD (gastroesophageal reflux disease) Qualifiers: Esophagitis presence: without esophagitis Qualified Code(s): K21.9 - Gastro- esophageal reflux disease without esophagitis Disposition: DC-01 TO HOME OR SELFCARE Is pt being admited?: No Does the pt Need Aspirin: No Condition: Stable Instructions: Gastroesophageal Reflux Disease (ED), Abdominal Pain (ED), Gas and Bloating (ED), Urinary Tract Infection in Women (ED) Additional Instructions: Take medications with food, drink plenty of fluids and follow-up with your primary care physician in 5 to 7 days for reevaluation. Return to the ED immediately if symptoms get worse. Avoid late night meals. Prescriptions: Sulfamethoxazole/Trimethoprim [Bactrim DS TAB] 1 each PO Q12H #20 tablet Dicyclomine [Bentyl] 20 mg PO Q6H PRN #24 tablet PRN Reason: Abdominal pain Famotidine [Pepcid] 20 mg PO BID #60 tablet Ondansetron [Zofran Odt] 4 mg PO Q6HR PRN #15 tab.rapdis PRN Reason: Nausea Referrals: [facility] [Provider Group] - 3-5 Days Time of Disposition: 06:28 Print Language: [id number]
[2019-12-03 07:29] VITALS: BP 163/79
== END 2019-12-03 06:45 | disposition home or self-care (01) ==
LOC: ED 02:06
DX: K21.9 Gastro-esophageal reflux disease without esophagitis (principal); N39.0 Urinary tract infection, site not specified; R10.13 Epigastric pain; E66.01 Morbid (severe) obesity due to excess calories; J45.909 Unspecified asthma, uncomplicated; Z79.899 Other long term (current) drug therapy; Z68.41 Body mass index [BMI] 40.0-44.9, adult; Z98.890 Other specified postprocedural states
CPT/HCPCS: 36415; 71045; 80053; 81001; 83690; 84484; 84703; 85007; 85025; 87086; 93005